=== PATIENT | male | born 1935 | race Caucasian/White ===

== ENCOUNTER 2017-06-10 11:39 | Emergency (ER) | payer OTHER ==
[~2017-06-10] VITALS: Ht 177.8 cm; Wt 84.3 kg
[2017-06-10 11:54] VITALS: BP 152/74; PULSE 53; RESP 16; TEMP 97.5; O2SAT 98
[2017-06-10] MEDS ORDERED: RANI150T PO (13:58)
[2017-06-10] MEDS ORDERED: FINA5TAB2 (13:58)
[2017-06-10] MEDS ORDERED: ZOCO10TA PO (13:58)
[2017-06-10] MEDS ORDERED: TERA10CA3 PO (13:58)
--- NOTE | 2017-06-10 14:01 | PD ---
HPI Chief Complaint: Eye Problems/Injury Time Seen by Provider: 13:55 Travel History International Travel<30 days: No Contact w/Intl Traveler<30days: No Traveled to known affect area: No History of Present Illness HPI Patient accidentally stepped in a hole and fell down unable to put his arms up in time, he struck his face/cheek area approximately 5 days ago. Then about 2 days ago he started to developed double vision IF only both eyes are open.. Patient denies any lateralizing weakness, difficulty speaking, slurred speech, any facial paralysis, also states that when he looks out of one eye at a time he does not see double and he sees clearly. Although patient states that when he moves his eyes downward and he appears to have worsening of his double vision. dr wilfred romero No known drug allergies Past medical history consistent with hypercholesterolemia, bph, gerd, cataract surgery. PFSH Social History Tobacco Use: No Allergies-Medications (Allergen,Severity, Reaction): Coded Allergies: No Known Allergies (Unverified , 06/10/17) Reported Meds & Prescriptions Reported Meds & Active Scripts Active Reported Terazosin (Terazosin HCl) 10 Mg Cap 10 Mg PO HS Ranitidine (Ranitidine HCl) 150 Mg Tab 150 Mg PO DAILY Zocor (Simvastatin) 10 Mg Tab 10 Mg PO DAILY Finasteride 5 Mg Tab 5 Mg DAILY Do not crush. Review of Systems General / Constitutional: No: Fever Eyes: Positive: Diploplia HENT: No: Headaches Cardiovascular: No: Chest Pain or Discomfort Respiratory: No: Shortness of Breath Gastrointestinal: No: Abdominal Pain Genitourinary: No: Dysuria Musculoskeletal: No: Pain Skin: No Rash Neurologic: No: Weakness Psychiatric: No: Depression Endocrine: No: Polydipsia Hematologic/Lymphatic: No: Easy Bruising Physical Exam Narrative GENERAL: SKIN: Warm and dry. HEAD: Atraumatic. Normocephalic. EYES: Pupils equal and round. No scleral icterus. No injection or drainage. Extraocular muscles are largely intact with the exception of the left eye which developed double vision when looking up. No hyphema, normal Mirza-Pen pressures , no uptake of fluorescein. The patient does have some slight ecchymosis over his left infraorbital region ENT: No nasal bleeding or discharge. Mucous membranes pink and moist. NECK: Trachea midline. No JVD. CARDIOVASCULAR: Regular rate and rhythm. RESPIRATORY: No accessory muscle use. Clear to auscultation. Breath sounds equal bilaterally. GASTROINTESTINAL: Abdomen soft, non-tender, nondistended. MUSCULOSKELETAL: Extremities without clubbing, cyanosis, or edema. No obvious deformities. NEUROLOGICAL: Awake and alert. No obvious cranial nerve deficits. Motor grossly within normal limits. Five out of 5 muscle strength in the arms and legs. Normal speech. PSYCHIATRIC: Appropriate mood and affect; insight and judgment normal. Data Data Last Documented VS Vital Signs Date Time Temp Pulse Resp B/P (MAP) Pulse Ox O2 Delivery O2 Flow Rate FiO2 06/10/17 11:54 97.5 53 16 152/74 (100) [address] Brain W/O Iv Contrast(Rout) (06/10/17 14:19) Ct Facial Bones W/O Iv Cont (06/10/17 14:19) [facility] Medical Decision Making Medical Screen Exam Complete: Yes Emergency Medical Condition: Yes Medical Record Reviewed: Yes Differential Diagnosis Orbital entrapment versus occipital CVA versus ICH Narrative Course CT head read as negative for intracranial hemorrhage, brain mass or ischemic CVA per radiologist. CT of maxillofacial does not show any fractures, or any evidence of any orbital entrapment, only of paranasal sinusitis per radiologist These findings were discussed with the patient and , and they were both advised to follow-up with the digital content producer as an outpatient. They were given a referral to Dr. Shirley Gonzales for further evaluation and care. Diagnosis Primary Impression: diplopia Referrals: Shirley Gonzales MD Patient Instructions: Diplopia (ED), General Instructions Additional Instructions: you are recommended to call the ophtalmologist and follow up for further testing. today cat scan of brain is negative for any intracranial bleed, mass or stroke.....also ct of facial bones only showed sinusitis of paranasal region , no entrapment or evident fractures noted. Disposition: 01 DISCHARGE HOME Condition: Stable Ty oSler MD Jun 10, 2017 14:01
--- NOTE | 2017-06-10 14:58 | RADRPT ---
EXAM DATE/TIME: 06/10/2017 14:43 [facility] COMPARISON: No previous studies available for comparison. INDICATIONS : Fell and hit left upper cheek area, and now has blurred vision. RADIATION DOSE: 61.74 CTDIvol (mGy) MEDICAL HISTORY : Hypercholesterolemia. Gastroesophageal reflux disease. SURGICAL HISTORY : None. ENCOUNTER: Initial ACUITY: 1 week PAIN SCALE: 4/10 LOCATION: Left cranial TECHNIQUE: Multiple contiguous axial images were obtained of the head. Using automated exposure control and adj ustment of the mA and/or kV according to patient size, radiation dose was kept as low as reasonably a chievable to obtain optimal diagnostic quality images. DICOM format image data is available electro nically for review and comparison. FINDINGS: CEREBRUM: The ventricles are normal for age. No evidence of midline shift, mass lesion, hemorrhage or acute in farction. No extra-axial fluid collections are seen. POSTERIOR FOSSA: The cerebellum and brainstem are intact. The 4th ventricle is midline. The cerebellopontine angle i s unremarkable. EXTRACRANIAL: The visualized portion of the orbits is intact. SKULL: The calvaria is intact. No evidence of skull fracture. CONCLUSION: Negative for acute process Glen Dallas MD FACR on June 10, 2017 at 14:55 Board Certified Radiologist. This report was verified electronically.
--- NOTE | 2017-06-10 15:11 | RADRPT ---
EXAM DATE/TIME: 06/10/2017 14:43 [facility] COMPARISON: CT BRAIN W/O CONTRAST, June 10, 2017, 14:43. INDICATIONS : Fell and hit left upper cheek area, and now has blurred vision. RADIATION DOSE: 34.93 CTDIvol (mGy) MEDICAL HISTORY : Hypercholesterolemia. Gastroesophageal reflux disease. SURGICAL HISTORY : None. ENCOUNTER: Initial ACUITY: 1 week PAIN SCORE: 5/10 LOCATION: Left facial TECHNIQUE: Volumetric scanning of the facial bones was performed. Using automated exposure control and adjustme nt of the mA and/or kV according to patient size, radiation dose was kept as low as reasonably achiev able to obtain optimal diagnostic quality images. DICOM format image data is available electronicall y for review and comparison. FINDINGS: ORBITS: The orbital and infraorbital osseous structures are intact. The retroconal structures have a normal configuration. No radiopaque foreign bodies are seen. NASAL BONE: The nasal bone and maxillary spine are intact ZYGOMATIC ARCHES: Symmetric without evidence of fracture. SINUSES: There is bilateral anterior ethmoid mucosal thickening left greater than right, with left frontal sin us mucosal thickening and right greater than left maxillary sinus mucosal thickening noted. No air-fl uid levels. NASAL CAVITY: The nasal septum is intact and midline. The lacrimal ducts are intact. SOFT TISSUES: No radiopaque foreign bodies seen. No soft-tissue swelling is seen. INTRACRANIAL: No intracranial air seen. CRIBIFORM PLATE: Grossly intact. CONCLUSION: 1. Paranasal sinus mucosal disease. 2. Otherwise unremarkable. Ramesh Bhatia MD on June 10, 2017 at 15:07 Board Certified Radiologist. This report was verified electronically.
== END 2017-06-10 16:12 | disposition home or self-care (01) ==
LOC: PHED 11:39
DX: H53.2 Diplopia (principal)
CPT/HCPCS: 70450; 70486; 99283